=== PATIENT | female | born 1995 | race Caucasian/White ===

== ENCOUNTER 2017-04-10 00:15 | Emergency (ER) | payer OTHER ==
[~2017-04-10 00:15] MED LIST: CLARITIN10 MG PO; IBUPROFEN PO; TYLENOL #3 PO
== END 2017-04-10 00:20 | disposition left against medical advice (07) ==
LOC: CED 00:15
DX: Z53.21 Procedure and treatment not carried out due to patient leaving prior to being seen by health care provider (principal)

== ENCOUNTER 2017-04-13 09:06 | Emergency (ER) | payer OTHER | END 2017-04-13 09:51 | disposition home or self-care (01) | LOC: CED 09:06 | DX: H66.91 Otitis media, unspecified, right ear (principal); F32.9 Major depressive disorder, single episode, unspecified | CPT/HCPCS: 99282 ==

== ENCOUNTER 2017-06-28 22:08 | Emergency (ER) | payer OTHER ==
[2017-06-29 00:15] LABS: URINE SOURCE CLEAN CATCH
[2017-06-29 00:21] LABS: URINE APPEARANCE CLEAR; URINE BILIRUBIN NEG (NEG); URINE BLOOD 3+ (NEG); URINE COLOR YELLOW; URINE GLUCOSE NEG (NEG); URINE KETONE NEG (NEG); URINE LEUKOCYTE ESTERASE 1+ (NEG); URINE NITRATE NEG (NEG); URINE PROTEIN NEG (NEG); URINE SPECIFIC GRAVITY 1.028 (1.003-1.035)
[2017-06-29 00:24] LABS: CULTURE INDICATED? YES; URINE BACTERIA AUWI 1+ (NEGATIVE); URINE SQUAMOUS EPITHELIAL CELL MOD /[HPF]
[2017-06-29 00:25] LABS: BASOPHIL% 0.2 % (0-2.5); EOSINOPHIL# 0.1 X10e3 (0-0.7); EOSINOPHIL% 0.7 % (0.0-7.0); HEMATOCRIT 39.6 % (35.0-45.0); HEMOGLOBIN 13.1 gm/dL (12.0-16.0); LYMPHOCYTE# 3.5 X10e3 (1.0-3.5); LYMPHOCYTE% 25.9 % (17.0-45.0); MEAN CELL VOLUME 84.6 FL (83-96); MEAN CORPUSCULAR HGB CONC 33.1 g/dL (30-36); MEAN PLATELET VOLUME 8.4 FL (6.5-11.5); MONOCYTE# 0.7 X10e3 (0-1.0); MONOCYTE% 5.2 % (3.0-12.0); NEUTROPHIL# 9.1 X10e3 (1.5-7.1); PLATELET COUNT 277 X10e3 (140-420); RED BLOOD COUNT 4.68 X10e (3.90-5.30); RED CELL DISTRIBUTION WIDTH 14.3 % (11.0-15.5); WHITE BLOOD COUNT 13.4 X10e3 (4.0-10.5)
[2017-06-29 00:27] LABS: DIFF IND NO
[2017-06-29 00:29] LABS: INR 0.9; PARTIAL THROMBOPLASTIN TIME 26.8 SECONDS (23.5-31.3)
[2017-06-29 00:33] LABS: ALBUMIN SERUM 4.2 g/dL (3.5-5.0); ALKALINE PHOSPHATASE 145 U/L (32-92); ALT (SGPT) 21 U/L (10-40); AST (SGOT) 17 U/L (10-42); BILIRUBIN,TOTAL 0.4 mg/dL (0.2-2.0); BLOOD UREA NITROGEN 13 mg/dL (9-23); BUN/CREATININE RATIO 16.25; CARBON DIOXIDE 27 mmol/L (22-31); CHLORIDE 104 mmol/L (100-111); CREATININE SERUM 0.8 mg/dL (0.6-1.4); GLOM FILT RATE Estimated 105.5 mL/min (>60); GLUCOSE FASTING 105 mg/dL (70-110); POTASSIUM 3.7 mmol/L (3.5-5.1); PROTEIN TOTAL SERUM 7.9 g/dL (6.0-8.3); SODIUM 137 mmol/L (135-145)
[2017-06-29 00:46] LABS: BILIRUBIN, DIRECT <0.1 mg/dL (0.0-0.2); BILIRUBIN,INDIRECT 0.3 mg/dL (0.0-0.9)
[2017-07-01 16:57] LABS: CHLAMYDIA TRACH Not Detected (Not Detected); N GONOR Not Detected (Not Detected)
== END 2017-06-29 01:59 | disposition home or self-care (01) ==
LOC: CED 22:08
PROVIDERS: Emergency Medicine
DX: B37.49 Other urogenital candidiasis (principal); N93.8 Other specified abnormal uterine and vaginal bleeding; F32.9 Major depressive disorder, single episode, unspecified
CPT/HCPCS: 36415; 80048; 80076; 81003; 84703; 85025; 85610; 85730; 87086; 87491; 87591; 87808; 87905; 99284